=== PATIENT | male | born 1930 | race Caucasian/White ===

== ENCOUNTER 2016-11-02 16:55 | Inpatient (IN) | payer OTHER ==
--- NOTE | 2016-11-02 17:22 | EDPHY ---
H & P Time Seen by Provider: 11/02/16 17:21 HPI/ROS: Chief complaint. Generalized pain HPI. 86-year-old male here by EMS with pain and swelling to both wrists and hands ankles and feet that began this morning. He was out on the patio last evening and feeling fine but got chilled. He came in warmed up and then felt better. However this morning unable to walk and had pain and swelling to the wrists and ankles feet. Denies chest pain or shortness of breath. No fever cough. Difficult time urinating. No similar symptoms previously ROS Constitutional. no fever/chills, no weakness Eyes. no problems with vision ENT. no sore throat, no nasal drainage Cardiovascular. no chest pain Respiratory. no shortness of breath, no cough Abdominal. no abdominal pain, no nausea/vomiting, no diarrhea . no problems urinating MS. Pain swelling to wrists, hands, ankles, feet Skin. no rash Lymph. no swollen glands Neuro. Difficulty walking Past Medical/Surgical History: Past medical history from [place]-- insulin-dependent diabetic, hypothyroidism, arthritis, htn , CRI, aortic athersclerosis. sleep apnea, neuropathy allergies--per [place]-- AZAR inhibitors, nsaids, morphine, pcn Social History: , nonsmoker, no alcohol Smoking Status: Former smoker Physical Exam: General Appearance: Alert well-developed male mild distress vital signs significant for O2 saturation 85% on room air Eyes: Pupils equal and round no pallor or injection. ENT, Mouth: Mucous membranes are moist. Respiratory: There are no retractions, lungs are clear to auscultation. Cardiovascular: Regular rate and rhythm. Gastrointestinal: Abdomen is soft and nontender, no masses, bowel sounds normal. Neurological: Awake and alert, sensory and motor exams grossly normal. Skin: Warm and dry, no rashes. Musculoskeletal: Neck is supple nontender. Extremities there is swelling to both wrists and around his ankles. No obvious erythema. Both hands also appear to be swollen. Psychiatric: Patient is oriented X 3, there is no agitation. Constitutional: Initial Vital Signs Heart Rate 83 11/02/16 17:14 Respiratory Rate 16 11/02/16 17:14 Blood Pressure 135/73 H 11/02/16 17:14 O2 Sat (%) 85 L 11/02/16 17:14 O2 Delivery Mode Room Air O2 (L/minute) 4 Allergies/Adverse Reactions: AZAR Inhibitors Allergy (Verified 11/02/16 21:38) morphine Allergy (Verified 11/02/16 21:39) NSAIDS (Non-Steroidal Anti-Inflamma Allergy (Verified 11/02/16 21:38) Penicillins Allergy (Verified 07/05/15 13:42) Home Medications: Medication Instructions Recorded Aspirin [Aspirin 325 mg (*)] 325 mg PO DAILY 11/02/16 Cholecalciferol Vit D3 [Vitamin D3 2,000 units PO DAILY 11/02/16 (*)] Furosemide [Lasix 40 MG (*)] 80 mg PO DAILY 11/02/16 Gabapentin [Neurontin 300 MG (*)] 300 mg PO HS 11/02/16 Insulin NPH Human [humULIN N 100 17 units SC DAILY 11/02/16 UNITS/ML (*)] Insulin NPH Human [humULIN N 100 27 units SC HS 11/02/16 UNITS/ML (*)] Levothyroxine [Synthroid 200 mcg 200 mcg PO DAILY06 11/02/16 (*)] Multivitamins [Multivitamin (*)] 1 each PO DAILY 11/02/16 [place]-3 Fatty Acids [Fish Oil 1000 1,000 mg PO DAILY 11/02/16 mg (*)] Omeprazole 20 mg PO DAILY 11/02/16 Saxagliptin HCl [Onglyza] 2.5 mg PO DAILY 11/02/16 Spironolactone [Aldactone 25 MG 50 mg PO BID 11/02/16 (*)] glipiZIDE [Glucotrol] 5 mg PO BID 11/02/16 Medical Decision Making - Diagnostics EKG Interpretation: EKG interpreted by me shows normal sinus rhythm with first-degree AV block. There is left axis deviation. QRS is otherwise normal there is no significant ST elevation or depression. The rate is 71 Imaging Results: Chest x-ray interpreted by me shows no evidence for pneumonia Procedures: IV normal saline, monitor. Septic workup. ED Course/Re-evaluation: Re-evaluation 7:00 p.m. patient is stable The patient, his , and I discussed imaging lab EKG results. We discussed treatment plan including need for admission. They expressed understanding and agreement I called [place] to obtain further medical information I consulted and discussed the case with , hospitalist who agrees to the admission Differential Diagnosis: Slow bit unclear what is going on with this patient. He has a elevated white count. He has sudden onset of swelling to wrist hands ankles and feet. This could be gout or pseudogout generalized inflammation. No obvious source of infection - Data Points Medications Given: Discontinued Medications Sodium Chloride (Ns) 1,000 mls @ 0 mls/hr IV ONCE ONE PRN Reason: Wide Open Stop: 11/02/16 19:08 Last Admin: 11/02/16 19:44 Dose: 1,000 mls Sodium Chloride (Ns) 1,000 mls @ 100 mls/hr IV CONT LUIS Stop: 11/03/16 07:44 Last Admin: 11/02/16 20:30 Dose: 1,000 mls Departure - Departure Disposition: [facility] Inpatient Acute Condition: Good
[2016-11-02 17:42] LABS: % IMMATURE GRANULYOCYTES 0.7 % (0.0-1.1); ABSOLUTE IMMATURE GRANULOCYTES 0.15 10^3/uL (0.00-0.10); ADD DIFF? NO; ADD MORPH? NO; ADD SCAN? NO; ATYPICAL LYMPHOCYTE FLAG 0 (0-99); FRAGMENT RBC FLAG 0 (0-99); HEMATOCRIT 48.7 % (40.0-51.0); HEMOGLOBIN 16.8 g/dL (13.7-17.5); LEFT SHIFT FLG 10 (0-99); LIPEMIA HEMOLYSIS FLAG 90 (0-99); MEAN CELL HEMOGLOBIN 31.9 pg (27.9-34.1); MEAN CELL HEMOGLOBIN CONCENTR. 34.5 g/dL (32.4-36.7); MEAN CELL VOLUME 92.6 fL (81.5-99.8); MEAN PLATELET VOLUME 10.8 fL (8.7-11.7); PLATELET CLUMPS FLAG 0 (0-99); PLATELET COUNT 210 10^3/uL (150-400); RED BLOOD CELL COUNT 5.26 10^6/uL (4.40-6.38); RED CELL DISTRIBUTION WIDTH 13.4 % (11.5-15.2)
[2016-11-02 17:45] LABS: INR 1.11 (0.83-1.16); PROTIME(PATIENT) 14.2 SEC (12.0-15.0)
[2016-11-02 17:46] LABS: APTT 29.6 SEC (23.0-38.0)
[2016-11-02 17:48] LABS: ANION GAP 11 mEq/L (8-16); BILIRUBIN,TOTAL 3.7 mg/dL (0.1-1.4); CALCIUM 9.1 mg/dL (8.5-10.4); CARBON DIOXIDE 25 mEq/l (22-31); CHLORIDE 98 mEq/L (97-110); CREATININE 1.5 mg/dL (0.7-1.3); GLOMERULAR FILTRATION RATE 44; GLUCOSE 229 mg/dL (70-100); POTASSIUM 4.6 mEq/L (3.5-5.2); SODIUM 134 mEq/L (134-144)
--- NOTE | 2016-11-02 17:52 | CPEKG ---
Heart Rate: 71 RR Interval: 845 P-R Interval: 304 QRSD Interval: 94 QT Interval: 388 QTC Interval: 422 P Bumpass: 262 QRS Bumpass: -6 T Wave Bumpass: 19 EKG Severity - ABNORMAL ECG - EKG Impression: SINUS OR ECTOPIC ATRIAL RHYTHM EKG Impression: FIRST DEGREE AV BLOCK EKG Impression: PROBABLE INFERIOR INFARCT, AGE INDETERMINATE EKG Impression: CONSIDER POSTERIOR WALL INVOLVEMENT Electronically Signed By: Blane Collado 02-Nov-2016 21:28:45
[2016-11-02 17:57] LABS: SEDIMENTATION RATE 10 MM/HR (0-20)
[2016-11-02 18:00] LABS: BILIRUBIN-CONJUGATED 0.7 mg/dL (0.0-0.5); TROPONIN I < 0.012 ng/mL (0-0.034)
[2016-11-02] MEDS ORDERED: NS 1,000 ML IV ONE (19:07)
[2016-11-02 20:14] LABS: ALBUMIN 3.9 g/dL (3.5-5.0); BILIRUBIN,TOTAL 3.7 mg/dL (0.1-1.4); BILIRUBIN-CONJUGATED 0.7 mg/dL (0.0-0.5); TOTAL PROTEIN 6.7 g/dL (6.3-8.2)
[2016-11-02] MEDS ORDERED: D50W 25 GM/50 ML SYR IVP PRN (21:31)
[2016-11-02] MEDS ORDERED: BISACODYL 10 MG SUPP PR PRN (21:38)
[2016-11-02] MEDS ORDERED: MAGNESIUM HYDROXIDE 30 ML UDCUP PO PRN (21:38)
[2016-11-02] MEDS ORDERED: POLYETHYLENE GLYCOL 3350 17 GM PKT PO PRN (21:38)
[2016-11-02] MEDS ORDERED: LACTULOSE 20 GM/30 ML UDCUP PO PRN (21:38)
[2016-11-02] MEDS ORDERED: ACETAMINOPHEN 325 MG TAB PO PRN (21:39)
[2016-11-02] MEDS ORDERED: HYDROmorphONE/DILAUDID 1 MG/ML SYR IVP PRN (21:39)
[2016-11-02] MEDS ORDERED: ONDANSETRON 4 MG/2 ML VIAL IVP PRN (21:39)
[2016-11-02] MEDS ORDERED: NS 1,000 ML IV SCH (21:45)
--- NOTE | 2016-11-02 22:48 | GHP ---
[f rep st] HISTORY AND PHYSICAL DATE OF ADMISSION: 11/02/2016 CHIEF COMPLAINT: Diffuse joint pain. HISTORY: The patient is an 86-year-old male, who presents with diffuse joint pain starting this morning. It is so severe he is unable to walk. He had a libertarian at his home last night and they stayed up later than usual on the patio. When he came in, he got severe chills and he could not get warm. He went to bed. When he woke up this morning he felt like a sack of potatoes, was unable to walk. He developed new diffuse joint pain and swelling. He has some chronic right wrist pain due to a previous fracture with subsequent deformity. Starting this morning, he developed bilateral wrist, feet, ankle and knee pain. He only drank 2 beers last night. He denies any morning stiffness. There has been no fever. He complains of constipation, not diarrhea. PAST MEDICAL HISTORY: 1. Diabetes type 2. 2. Hypothyroidism. 3. Obstructive sleep apnea on CPAP. 4. Neuropathy. MEDICATIONS: Please see computer record for full detailed list. ALLERGIES: To penicillin, AZAR inhibitors, NSAIDs and morphine. SOCIAL HISTORY: No smoking. He will drink up to 2 beers socially. Lives with his . His has advanced dementia. 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 He is 50 % disabled through the [facility] and also followed at [place]. REVIEW OF SYSTEMS: Complete Review of Systems obtained. Review of Systems are negative regarding constitutional, HEENT, GI, pulmonary, cardiovascular, , hematology, skin, musculoskeletal, endocrine, psych, except for positives and negatives as in HPI. FAMILY HISTORY: Reviewed and noncontributory to the presenting complaint. PHYSICAL EXAMINATION: GENERAL: Well-developed, well-nourished male, in no acute distress. VITAL SIGNS: Temperature is 36.9, pulse of 70, blood pressure 108/52, saturating 85% on room air. EYES: Normal conjunctivae. Pupils equal and react to light. ENT: Normal ears and nose. Hearing intact. Normal lips and teeth. Oropharynx moist. NECK: Trachea midline. No thyromegaly. CHEST: Normal respiratory effort. LUNGS: Clear to auscultation bilaterally. CARDIOVASCULAR: Regular rhythm. No murmur. No lower extremity edema. ABDOMEN : Soft, nontender. No hepatosplenomegaly. Obese. SKIN: Warm, dry. Intact without rash. MUSCULOSKELETAL: Strength is 5/5 bilaterally. No cyanosis or clubbing. His joints do have some diffuse inflammation, most prominent in the bilateral wrists with the right wrist being much worse. Although, it is unclear to what degree that is from the previous deformity. There is a clear palpable fluid collection on the right wrist. The left wrist does have some erythema and pain with range of motion but without as much fluid collection. He has pain with range of motion in the bilateral knees and ankles, although less obvious inflammation. He probably has some knee effusions. NEUROLOGIC: Cranial nerves intact. Normal sensation to light touch. PSYCH: Alert and oriented x3. Normal affect. Normal judgment and insight. Normal memory. LABORATORY DATA: White count 20.32, hematocrit 48.7, platelets 210. Sodium 134 , potassium 4.6, chloride 98, bicarb 25, BUN 32, creatinine 1.5, glucose 229. Total bilirubin 3.7, although this is mostly unconjugated. Troponin is negative. BNP is 102. Lactate is 1.6. EKG viewed by me: My personal interpretation is normal sinus rhythm, inferior T-wave flattening. Chest x-ray is essentially negative, possible bronchitis. ASSESSMENT/PLAN: 1. 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 The inflammation is most prominent on his right wrist, although this is a site of a previous fracture and deformity which may be leading to some of that asymmetry. Differential is broad, including self-limited viral infection. I will check parvo virus. His LFTs are abnormal. We will check an acute hepatitis panel and HIV. Could also consider EBV and CMV serology, although this is less likely. Also in differential is gout or calcium pyrophosphate dihydrate crystal deposition disease, although that would be anticipated to be more asymmetric. Will check uric acid and an x-ray starting with the right wrist. We will ask Radiology to tap the obvious palpable fluid on his right wrist and send it for crystals. I doubt septic joint. Rheumatologic disease is less likely given his advanced age, his sedimentation rate is not that high at 10. We will check a rheumatoid arthritis and an ALLEGRA. Given his leukocytosis, need to consider serum sickness and will check blood cultures. He does have a listed NSAID allergy. He would likely benefit from oral steroids; however, will hold off until a diagnosis is established. 3. Creatinine elevation. This may be his baseline. We will hydrate for 1 L and then recheck in the morning. 5. Obstructive sleep apnea and obesity. Continue CPAP at night. 6. Diabetes type 2. Continue his usual insulin and oral agents. CODE STATUS: Full. ADMISSION STATUS: 1. Will admit to inpatient. I anticipate greater than 2 midnights for diagnosis and treatment. 2. Deep vein thrombosis prophylaxis. He is high risk. Will place him on subcu Lovenox. /[id number]/MODL MTDD
[2016-11-02] MEDS: INSULIN NPH HUMAN 100 UNITS/ML SYRINGE SC SCH (23:09)
[2016-11-02] MEDS: oxyCODONE IR 5 MG TAB PO PRN (23:09)
[2016-11-02] MEDS: INSULIN REGULAR HUMAN 100 UNIT/ML SC SCH (23:19)
[2016-11-02 23:26] LABS: COLOR YELLOW; LEUKOCYTE ESTERASE,URINE NEGATIVE (NEGATIVE); NITRITE,URINE NEGATIVE (NEGATIVE)
[2016-11-03 05:05] LABS: % IMMATURE GRANULYOCYTES 0.5 % (0.0-1.1); ABSOLUTE IMMATURE GRANULOCYTES 0.07 10^3/uL (0.00-0.10); ADD DIFF? NO; ADD MORPH? NO; ADD SCAN? NO; ATYPICAL LYMPHOCYTE FLAG 0 (0-99); FRAGMENT RBC FLAG 0 (0-99); HEMATOCRIT 43.2 % (40.0-51.0); HEMOGLOBIN 14.8 g/dL (13.7-17.5); LEFT SHIFT FLG 10 (0-99); LIPEMIA HEMOLYSIS FLAG 90 (0-99); MEAN CELL HEMOGLOBIN CONCENTR. 34.3 g/dL (32.4-36.7); MEAN CELL VOLUME 93.5 fL (81.5-99.8); MEAN PLATELET VOLUME 10.3 fL (8.7-11.7); PLATELET CLUMPS FLAG 0 (0-99); PLATELET COUNT 180 10^3/uL (150-400); RED BLOOD CELL COUNT 4.62 10^6/uL (4.40-6.38); RED CELL DISTRIBUTION WIDTH 13.4 % (11.5-15.2)
[2016-11-03 05:18] LABS: POTASSIUM 4.4 mEq/L (3.5-5.2)
[2016-11-03 05:21] LABS: ALANINE AMINOTRANSFERASE 40 IU/L (21-72); ALBUMIN 3.1 g/dL (3.5-5.0); ALKALINE PHOSPHATASE 80 IU/L (38-126); ANION GAP 7 mEq/L (8-16); ASPARTATE AMINOTRANSFERASE 56 IU/L (17-59); BILIRUBIN-CONJUGATED 0.4 mg/dL (0.0-0.5); BILIRUBIN-UNCONJUGATED 2.6 mg/dL (0.0-1.1); CALCIUM 8.4 mg/dL (8.5-10.4); CARBON DIOXIDE 25 mEq/l (22-31); CHLORIDE 102 mEq/L (97-110); CREATININE 1.4 mg/dL (0.7-1.3); GLOMERULAR FILTRATION RATE 48; GLUCOSE 188 mg/dL (70-100); SODIUM 134 mEq/L (134-144); TOTAL PROTEIN 5.7 g/dL (6.3-8.2); URIC ACID 7.3 mg/dL (3.5-8.5)
[2016-11-03] MEDS: LEVOTHYROXINE 200 MCG TAB PO SCH (06:56)
[2016-11-03] MEDS ORDERED: INSULIN REGULAR HUMAN 100 UNIT/ML SC SCH (07:30)
[2016-11-03] MEDS: oxyCODONE IR 5 MG TAB PO PRN ×2 (08:36→14:03)
[2016-11-03] MEDS: ASPIRIN 325 MG TAB PO SCH (10:06)
[2016-11-03] MEDS: FUROSEMIDE 40 MG TAB PO SCH (10:06)
[2016-11-03] MEDS: PANTOPRAZOLE SODIUM 40 MG TAB PO SCH (10:06)
[2016-11-03] MEDS: glipiZIDE 5 MG TAB PO SCH ×2 (10:06→20:48)
[2016-11-03] MEDS: SPIRONOLACTONE 25 MG TAB PO SCH ×2 (10:13→20:48)
[2016-11-03] MEDS: SENNOSIDES/DOCUSATE SODIUM TAB PO SCH ×2 (10:17→20:47)
[2016-11-03] MEDS: Saxagliptin Hcl [Onglyza] 2.5 MG PO SCH (10:20)
[2016-11-03] MEDS: INSULIN REGULAR HUMAN 100 UNIT/ML SC SCH ×4 (10:23→20:50)
[2016-11-03] MEDS: INSULIN NPH HUMAN 100 UNITS/ML SYRINGE SC SCH ×2 (10:23→20:43)
[2016-11-03] MEDS ORDERED: LIDOCAINE 1% 30 ML SDV ONE (10:36)
[2016-11-03] MEDS ORDERED: NA BICARBONATE 50 MEQ/50 ML VIAL ONE (10:37)
[2016-11-03 14:04] LABS: WBC, SYNOVIAL FLUID 32325 /mm3 (0-150)
--- NOTE | 2016-11-03 14:46 | HOSPPROG ---
Hospitalist Progress Note Assessment/Plan: * acute onset of polyarticular arthritis * suspecting post infectious or viral * seems to be significantly better today * will hold off of any therapy and see if this is self-resolving * will await crystals from joint aspiration * he has had chronic wrist fluid collection there for some time and thus the aspiration of the right wrist may not lead to answers for the rest of his joints. 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 Lemus - Physical Exam Constitutional: no apparent distress, appears nourished, not in pain Eyes: anicteric sclera, EOMI Ears, Nose, Mouth, Throat: moist mucous membranes, hearing normal, ears appear normal Cardiovascular: regular rate and rhythym Respiratory: no respiratory distress, no rales or rhonchi, clear to auscultation Gastrointestinal: normoactive bowel sounds, soft, non-tender abdomen, no palpable masses Skin: warm Musculoskeletal: other ( right wrist fluid collection, bilateral mild knee effusion) Neurologic: AAOx3 Psychiatric: interacting appropriately, not anxious, not encephalopathic, thought process linear ICD10 Worksheet Patient Problems: Problems Problem Status Onset Arthritis Acute - ICD10 Problem Qualifiers (1) Arthritis
[2016-11-03] MEDS ORDERED: PROMETHAZINE HCL 25 MG TAB PO PRN (19:49)
[2016-11-03] MEDS ORDERED: PROMETHAZINE HCL 12.5 MG SUPPR PR PRN (19:49)
[2016-11-03] MEDS: GABAPENTIN 300 MG CAP PO SCH (20:48)
[2016-11-03] MEDS ORDERED: INSULIN NPH HUMAN 100 UNITS/ML SYRINGE SC SCH (21:00)
[2016-11-04] MEDS: LEVOTHYROXINE 200 MCG TAB PO SCH (05:16)
[2016-11-04 05:35] LABS: % IMMATURE GRANULYOCYTES 0.5 % (0.0-1.1); ABSOLUTE IMMATURE GRANULOCYTES 0.04 10^3/uL (0.00-0.10); ADD DIFF? NO; ADD MORPH? NO; ADD SCAN? NO; ATYPICAL LYMPHOCYTE FLAG 0 (0-99); FRAGMENT RBC FLAG 0 (0-99); HEMATOCRIT 44.6 % (40.0-51.0); HEMOGLOBIN 15.4 g/dL (13.7-17.5); LEFT SHIFT FLG 0 (0-99); LIPEMIA HEMOLYSIS FLAG 90 (0-99); MEAN CELL HEMOGLOBIN CONCENTR. 34.5 g/dL (32.4-36.7); MEAN CELL VOLUME 92.5 fL (81.5-99.8); MEAN PLATELET VOLUME 10.2 fL (8.7-11.7); PLATELET CLUMPS FLAG 0 (0-99); PLATELET COUNT 192 10^3/uL (150-400); RED BLOOD CELL COUNT 4.82 10^6/uL (4.40-6.38); RED CELL DISTRIBUTION WIDTH 13.2 % (11.5-15.2)
[2016-11-04 06:00] LABS: ANION GAP 8 mEq/L (8-16); CALCIUM 8.7 mg/dL (8.5-10.4); CARBON DIOXIDE 24 mEq/l (22-31); CHLORIDE 103 mEq/L (97-110); CREATININE 1.4 mg/dL (0.7-1.3); GLOMERULAR FILTRATION RATE 48; GLUCOSE 79 mg/dL (70-100); POTASSIUM 4.4 mEq/L (3.5-5.2); SODIUM 135 mEq/L (134-144)
[2016-11-04] MEDS: oxyCODONE IR 5 MG TAB PO PRN ×3 (10:10→21:46)
[2016-11-04] MEDS: INSULIN REGULAR HUMAN 100 UNIT/ML SC SCH ×4 (10:11→21:49)
[2016-11-04] MEDS: glipiZIDE 5 MG TAB PO SCH ×2 (10:13→21:46)
[2016-11-04] MEDS: ASPIRIN 325 MG TAB PO SCH (10:13)
[2016-11-04] MEDS: PANTOPRAZOLE SODIUM 40 MG TAB PO SCH (10:14)
[2016-11-04] MEDS: FUROSEMIDE 40 MG TAB PO SCH (10:14)
[2016-11-04] MEDS: SPIRONOLACTONE 25 MG TAB PO SCH ×2 (10:14→21:46)
[2016-11-04] MEDS: SENNOSIDES/DOCUSATE SODIUM TAB PO SCH ×2 (10:15→21:46)
[2016-11-04] MEDS: ENOXAPARIN 40 MG/0.4 ML SYR SC SCH (10:16)
[2016-11-04] MEDS: INSULIN NPH HUMAN 100 UNITS/ML SYRINGE SC SCH ×2 (10:20→21:45)
--- NOTE | 2016-11-04 10:27 | HOSPPROG ---
Hospitalist Progress Note Assessment/Plan: # acute symmetric polyarthritis, likely pseudogout - will treat with colchicine and follow clinical course # markedly elevated CRP and leukocytosis - likely related to above, follow for now # weakness - was too eak to work with PT yesterday; treat above and follow # CKD - follow, no nephrotoxins # DM2 - cont glargine + SSI # hypothyroid, low TSH - cont synthroid, check T3T4 # JEFFRY - cpap Subjective: ongoing joint pain and weakness Objective: Vital Signs Temp Pulse Resp BP Pulse Ox 36.6 C 77 18 110/71 94 11/04/16 07:53 11/04/16 07:53 11/04/16 07:53 11/04/16 07:53 11/04/16 07:53 Laboratory Results 11/04/16 05:23 11/04/16 05:23 11/03/16 11/04/16 11/05/16 05:59 05:59 05:59 Intake Total 500 300 Output Total 1100 Balance 500 -800 PT 14.2 SEC (12.0-15.0) 11/02/16 Unknown INR 1.11 (0.83-1.16) 11/02/16 Unknown chart reviewed; wrist XR reviewed; ECG personally reviewed - Physical Exam Constitutional: no apparent distress, appears nourished Cardiovascular: regular rate and rhythym, no murmur, rub, or gallop Respiratory: no respiratory distress, no rales or rhonchi, clear to auscultation Gastrointestinal: normoactive bowel sounds, soft, non-tender abdomen, no palpable masses Musculoskeletal: other (multiple joints that are warm, mild effusions, no erythema) ICD10 Worksheet Patient Problems: Problems Problem Status Onset Arthritis Acute
[2016-11-04] MEDS: COLCHICINE 0.6 MG CAP/TAB PO SCH ×2 (12:23→21:47)
[2016-11-04 15:22] LABS: ANTINUCLEAR ANTIBODIES SCREEN 0.62 UNITS (<=1.00)
[2016-11-04] MEDS: Saxagliptin Hcl [Onglyza] 2.5 MG PO SCH ×2 (17:18→17:19)
[2016-11-04] MEDS: GABAPENTIN 300 MG CAP PO SCH (21:47)
[2016-11-05] MEDS: oxyCODONE IR 5 MG TAB PO PRN (02:08)
[2016-11-05 06:14] VITALS: RESP 18
[2016-11-05] MEDS: LEVOTHYROXINE 200 MCG TAB PO SCH (06:17)
[2016-11-05 07:48] LABS: % IMMATURE GRANULYOCYTES 0.4 % (0.0-1.1); ABSOLUTE IMMATURE GRANULOCYTES 0.03 10^3/uL (0.00-0.10); ADD DIFF? NO; ADD MORPH? NO; ADD SCAN? NO; ATYPICAL LYMPHOCYTE FLAG 0 (0-99); FRAGMENT RBC FLAG 0 (0-99); HEMATOCRIT 43.6 % (40.0-51.0); HEMOGLOBIN 14.7 g/dL (13.7-17.5); LEFT SHIFT FLG 0 (0-99); LIPEMIA HEMOLYSIS FLAG 80 (0-99); MEAN CELL HEMOGLOBIN 31.7 pg (27.9-34.1); MEAN CELL HEMOGLOBIN CONCENTR. 33.7 g/dL (32.4-36.7); MEAN PLATELET VOLUME 10.4 fL (8.7-11.7); PLATELET CLUMPS FLAG 10 (0-99); PLATELET COUNT 217 10^3/uL (150-400); RED BLOOD CELL COUNT 4.64 10^6/uL (4.40-6.38); RED CELL DISTRIBUTION WIDTH 13.2 % (11.5-15.2)
[2016-11-05 08:15] LABS: ANION GAP 6 mEq/L (8-16); C-REACTIVE PROTEIN 87.2 mg/L (<10.0); CALCIUM 8.6 mg/dL (8.5-10.4); CARBON DIOXIDE 26 mEq/l (22-31); CHLORIDE 102 mEq/L (97-110); CREATININE 1.3 mg/dL (0.7-1.3); GLOMERULAR FILTRATION RATE 52; GLUCOSE 62 mg/dL (70-100); POTASSIUM 4.5 mEq/L (3.5-5.2); SODIUM 134 mEq/L (134-144)
[2016-11-05 08:41] LABS: T3 (TRIIODOTHYRONINE) TOTAL 0.767 ng/mL (0.970-1.690)
[2016-11-05] MEDS: INSULIN REGULAR HUMAN 100 UNIT/ML SC SCH ×4 (09:18→21:42)
[2016-11-05] MEDS: SENNOSIDES/DOCUSATE SODIUM TAB PO SCH ×2 (10:04→21:22)
[2016-11-05] MEDS: COLCHICINE 0.6 MG CAP/TAB PO SCH ×2 (10:04→21:22)
[2016-11-05] MEDS: ASPIRIN 325 MG TAB PO SCH (10:04)
[2016-11-05] MEDS: PANTOPRAZOLE SODIUM 40 MG TAB PO SCH (10:04)
[2016-11-05] MEDS: glipiZIDE 5 MG TAB PO SCH ×2 (10:04→21:22)
[2016-11-05] MEDS: FUROSEMIDE 40 MG TAB PO SCH (10:05)
[2016-11-05] MEDS: ENOXAPARIN 40 MG/0.4 ML SYR SC SCH (10:05)
[2016-11-05] MEDS: INSULIN NPH HUMAN 100 UNITS/ML SYRINGE SC SCH (10:05)
[2016-11-05] MEDS: SPIRONOLACTONE 25 MG TAB PO SCH ×2 (10:06→21:21)
[2016-11-05] MEDS: Saxagliptin Hcl [Onglyza] 2.5 MG PO SCH (10:09)
[2016-11-05] MEDS ORDERED: INSULIN NPH HUMAN 100 UNITS/ML SYRINGE SC SCH (10:46)
--- NOTE | 2016-11-05 10:48 | HOSPPROG ---
Hospitalist Progress Note Assessment/Plan: # pseudogout - improved with colchicine # markedly elevated CRP and leukocytosis - likely related to above, follow for now # weakness - slowly improving # CKD - follow, no nephrotoxins # DM2 with morning hypoglycemia - cont glargine + SSI - decrease nocturnal NPH # hypothyroid, low TSH - slightly low T3 - recheck as outpatient in 1 month # JEFFRY - cpap Subjective: overall improving, more mobility in joints; still unsteady on feet Objective: Vital Signs Temp Pulse Resp BP Pulse Ox 36.8 C 68 18 120/53 L 92 11/05/16 07:47 11/05/16 07:47 11/05/16 07:47 11/05/16 07:47 11/05/16 07:47 Laboratory Results 11/05/16 07:26 11/05/16 07:26 11/04/16 11/05/16 11/06/16 05:59 05:59 05:59 Intake Total 300 850 Output Total 1100 1150 Balance -800 -300 PT 14.2 SEC (12.0-15.0) 11/02/16 Unknown INR 1.11 (0.83-1.16) 11/02/16 Unknown - Time Spent With Patient Time Spent with Patient: greater than 25 minutes Time Spent with Patient: Greater than 25 minutes spent on this patients care, greater than 50% of time spent counseling, educating, and coordinating care regarding the above mentioned plan. - Physical Exam Constitutional: no apparent distress, appears nourished Cardiovascular: regular rate and rhythym, no murmur, rub, or gallop Respiratory: no respiratory distress, no rales or rhonchi, clear to auscultation Gastrointestinal: normoactive bowel sounds, soft, non-tender abdomen, no palpable masses ICD10 Worksheet Patient Problems: Problems Problem Status Onset Arthritis Acute
[2016-11-05] MEDS: GABAPENTIN 300 MG CAP PO SCH (21:21)
[2016-11-06] MEDS: LEVOTHYROXINE 200 MCG TAB PO SCH (06:10)
[2016-11-06] MEDS: INSULIN REGULAR HUMAN 100 UNIT/ML SC SCH ×2 (07:41→12:28)
[2016-11-06 08:21] VITALS: BP 150/96; PULSE 78; TEMP 97.2; O2SAT 95
[2016-11-06] MEDS: FUROSEMIDE 40 MG TAB PO SCH (09:36)
[2016-11-06] MEDS: glipiZIDE 5 MG TAB PO SCH (09:36)
[2016-11-06] MEDS: PANTOPRAZOLE SODIUM 40 MG TAB PO SCH (09:36)
[2016-11-06] MEDS: SPIRONOLACTONE 25 MG TAB PO SCH (09:36)
[2016-11-06] MEDS: ASPIRIN 325 MG TAB PO SCH (09:36)
[2016-11-06] MEDS: SENNOSIDES/DOCUSATE SODIUM TAB PO SCH (09:36)
[2016-11-06] MEDS: COLCHICINE 0.6 MG CAP/TAB PO SCH (09:36)
[2016-11-06] MEDS: ENOXAPARIN 40 MG/0.4 ML SYR SC SCH (09:37)
[2016-11-06] MEDS: Saxagliptin Hcl [Onglyza] 2.5 MG PO SCH (10:37)
--- NOTE | 2016-11-06 10:40 | PDIAF ---
- Diagnosis Diagnosis: Pseudogout Code Status: Full Code - Medication Management Discharge Medications: Medications to Continue on Transfer Aspirin [Aspirin 325 mg (*)] 325 mg PO DAILY 11/02/16 [Last Taken 11/01/16] Cholecalciferol Vit D3 [Vitamin D3 (*)] 2,000 units PO DAILY 11/02/16 [Last Taken 11/01/16] Furosemide [Lasix 40 MG (*)] 80 mg PO DAILY 11/02/16 [Last Taken 11/01/16] Gabapentin [Neurontin 300 MG (*)] 300 mg PO HS 11/02/16 [Last Taken 11/01/16] Insulin NPH Human [humULIN N 100 UNITS/ML (*)] 17 units SC DAILY 11/02/16 [Last Taken 11/01/16] Levothyroxine [Synthroid 200 mcg (*)] 200 mcg PO DAILY06 11/02/16 [Last Taken ] Multivitamins [Multivitamin (*)] 1 each PO DAILY 11/02/16 [Last Taken 11/01/16] [place]-3 Fatty Acids [Fish Oil 1000 mg (*)] 1,000 mg PO DAILY 11/02/16 [Last Taken 11/01/16] Omeprazole 20 mg PO DAILY 11/02/16 [Last Taken 11/01/16] Saxagliptin HCl [Onglyza] 2.5 mg PO DAILY 11/02/16 [Last Taken 11/01/16] Spironolactone [Aldactone 25 MG (*)] 50 mg PO BID 11/02/16 [Last Taken 11/01/16] glipiZIDE [Glucotrol 5 mg] 5 mg PO BID 11/02/16 [Last Taken 11/01/16] Colchicine [Colchicine (*)] 0.6 mg PO BID #60 ea 11/06/16 [Last Taken Unknown] Insulin NPH Human [humULIN N 100 UNITS/ML (*)] 15 units SC HS ml 11/06/16 [ Last Taken Unknown] Discharge Medications: Refer to the Discharge Home Medication list for PRN reason. - Orders Services needed: Registered Nurse, Certified Development Geologist, Physical Therapy, Occupational Therapy - Labs/Radiology BMP Date: 11/08/16 - Follow Up Care Current Providers and Referrals: Patient,NotPresent [Unknown] - As per Instructions
[2016-11-06] MEDS: INSULIN NPH HUMAN 100 UNITS/ML SYRINGE SC SCH (10:41)
--- NOTE | 2016-11-06 11:02 | GDS ---
[f rep st] DISCHARGE SUMMARY ALL DIAGNOSES: 1. Pseudogout. 2. Elevated inflammatory markers. 3. Hypothyroid. 4. Weakness. 5. Chronic kidney disease, at baseline creatinine of 1.3. 6. Diabetes mellitus type 2 with an episode of morning hypoglycemia. 7. Obstructive sleep apnea on CPAP. HOSPITAL COURSE: 86-year-old man admitted with symmetric polyarthritis. Aspiration revealed calciu m pyrophosphate crystals consistent with pseudogout. Started on colchicine with significant improve ment, though he is still quite weak when he ambulates. Recommend that he continue on colchicine for the time being. Notably he had a significant leukocytosis as well as elevated CRP, both of which h ave improved markedly without other directed therapy. No evidence of an infection. Chronic kidney disease has been stable. Discharge creatinine is 1.3. This should be followed while he is on colchicine. He has diabetes mellitus type 2. He had an episode of morning hypoglycemia. I have decreased his e vening NPH accordingly. He will be discharged on 17 units in the morning, 15 units in the evening. He is also on saxagliptin. DISPOSITION: Will likely be discharged to long-term facility. He had an episode of an outbur st with the nurse. Thus if he is not accepted by a long-term facility, he will be discharged home with home care. BILLING: I spent more than 30 minutes on the day of discharge coordinating care. /[id number]/MODL
[2016-11-06 15:17] LABS: PARVOVIRUS B19 IGG ANTIBODY 6.58 index (<0.90); PARVOVIRUS B19 IGM ANTIBODY 0.17 index (<0.90)
== END 2016-11-06 17:07 | DRG 554 ==
LOC: EDUNIT# → F1N 20:27
PROVIDERS: ADMIT Internal Medicine; ATTEND Student in an Organized Health Care Education/Training Program
PROC: 0R9N3ZX Drainage of Right Wrist Joint, Percutaneous Approach, Diagnostic (ICD-10-PCS; principal; 2016-11-03)
DX: M11.29 Other chondrocalcinosis, multiple sites (principal); E03.9 Hypothyroidism, unspecified; E11.649 Type 2 diabetes mellitus with hypoglycemia without coma; Z79.4 Long term (current) use of insulin; I10 Essential (primary) hypertension; N18.9 Chronic kidney disease, unspecified; G62.9 Polyneuropathy, unspecified; G47.33 Obstructive sleep apnea (adult) (pediatric); E66.9 Obesity, unspecified
CPT/HCPCS: 84480-90; 86747-90; 97162-GP; 97165-GO; 97530-GO; 97530-GP; 97535-GO; G0472; J1650; J1815; J2405

== ENCOUNTER 2017-04-19 14:14 | Inpatient (IN) | payer OTHER ==
--- NOTE | 2017-04-19 14:24 | EDPHY ---
H & P Time Seen by Provider: 04/19/17 14:20 HPI/ROS: CHIEF COMPLAINT: Altered mental status HISTORY OF PRESENT ILLNESS: The patient is an 86-year-old male who presents to the emergency department via EMS. Per nursing staff he was normal at lunch. The staff the then came to his room at approximately 1:40 p.m. when they heard him yelling and screaming. This was not typical per the nurse. EMS states the patient was hemodynamically stable. They did not note any focal neurologic deficits. Patient's glucose was 96. The patient is speaking in normal sentences. However, he does not clearly answer all all my questions. REVIEW OF SYSTEMS: The patient's complete review of systems is limited due the patient's altered mental status. Past Medical/Surgical History: Includes diabetes, pseudogout, hypothyroidism, weakness, chronic kidney disease with creatinine 1.3, obstructive sleep apnea Past surgical history: Unknown Smoking Status: Former smoker Physical Exam: Vitals noted. Patient has a mildly low oxygen saturation. Afebrile. GENERAL: No acute distress, alert]. Smells of urine. HEENT: Eyes normal to inspection, normal pharynx, no signs of dehydration. NECK: No thyromegaly, no lymphadenopathy, supple. RESPIRATORY: Clear to auscultation bilaterally, no rales, rhonchi or wheezing. CVS: Regular rate and rhythm, no rubs, murmurs, or gallops. ABDOMEN: Soft, nontender, nondistended, no organomegaly. BACK: Normal to inspection, no CVA tenderness. SKIN: Normal color, no rash, warm, dry. No pallor. EXTREMITIES: No pedal edema, no calf tenderness, no Homans sign or cords, no joint swelling. NEURO/PSYCH: Alert and oriented x2, normal motor sensory exam. Patient makes inappropriate statements. No obvious cranial nerve deficit. Constitutional: Initial Vital Signs Temperature (C) 36.7 C 04/19/17 14:28 Heart Rate 84 04/19/17 14:28 Respiratory Rate 18 04/19/17 14:28 Blood Pressure 165/80 H 04/19/17 14:28 O2 Sat (%) 91 L 04/19/17 14:28 O2 Delivery Mode Nasal Cannula O2 (L/minute) 3 Allergies/Adverse Reactions: AZAR Inhibitors Allergy (Verified 11/02/16 21:38) morphine Allergy (Verified 11/02/16 21:39) NSAIDS (Non-Steroidal Anti-Inflamma Allergy (Verified 11/02/16 21:38) Penicillins Allergy (Verified 07/05/15 13:42) Home Medications: Medication Instructions Recorded Aspirin [Aspirin 325 mg (*)] 325 mg PO DAILY 11/02/16 Cholecalciferol Vit D3 [Vitamin D3 2,000 units PO DAILY 11/02/16 (*)] Furosemide [Lasix 40 MG (*)] 80 mg PO DAILY 11/02/16 Gabapentin [Neurontin 300 MG (*)] 300 mg PO HS 11/02/16 Insulin NPH Human [humULIN N 100 17 units SC DAILY 11/02/16 UNITS/ML (*)] Levothyroxine [Synthroid 200 mcg 200 mcg PO DAILY06 11/02/16 (*)] Multivitamins [Multivitamin (*)] 1 each PO DAILY 11/02/16 [place]-3 Fatty Acids [Fish Oil 1000 1,000 mg PO DAILY 11/02/16 mg (*)] Omeprazole 20 mg PO DAILY 11/02/16 Saxagliptin HCl [Onglyza] 2.5 mg PO DAILY 11/02/16 Spironolactone [Aldactone 25 MG 50 mg PO BID 11/02/16 (*)] glipiZIDE [Glucotrol 5 mg] 5 mg PO BID 11/02/16 Colchicine [Colchicine (*)] 0.6 mg PO BID #60 ea 11/06/16 Insulin NPH Human [humULIN N 100 15 units SC HS ml 11/06/16 UNITS/ML (*)] Medical Decision Making - Diagnostics Imaging Results: Imaging Impressions Chest X-Ray 04/19/17 14:25 Impression: 1. Chronic bronchitis versus mild interstitial pulmonary fibrosis. 2. No definite acute pneumonia. ED Course/Re-evaluation: I met EMS on arrival. I took report from the sales representative groceries. Patient's glucose 96. Patient is not answering all my questions appropriately however he is forming complete sentences with normal articulation. I discussed the plan with the patient. Laboratory studies, EKG, chest x-ray, cultures, head CT were obtained. I rechecked the patient while here. He continued to be confused. He is given Ativan 1 the IV for his mental status. Patient's CBC is unremarkable. Patient had noted baseline creatinine of 1.3. Creatinine today is 1.4. Patient's lactic acid is normal. Troponin is negative. UA is positive. The patient was given Rocephin 1 g IV for urinary tract infection. I discussed the plan with the patient. I answered all his questions. EKG: Appears to show atrial fibrillation at 74. Normal axis and normal interval. I obtained a previous EKG. There is no atrial fibrillation in 11/02/2016. Also, on the patient's medical record there is no history of atrial fibrillation. Chest x-ray: Chronic bronchitis versus pulmonary fibrosis. No definite pneumonia. Please refer the dictated report. I discussed case with Dr. Alvarez. He accepted the patient. Differential Diagnosis: My differential includes but is not limited to altered mental status, urinary tract infection, pneumonia, aspiration, ischemic CVA, hemorrhagic CVA, electrolyte abnormality, sugar abnormality, bacteremia, sepsis - Data Points Laboratory Results: Laboratory Results 04/19/17 14:20 04/19/17 14:20 04/19/17 04/19/17 04/19/17 15:00 14:45 14:45 WBC RBC Hgb Hct MCV MCH MCHC RDW Plt Count MPV Neut % (Auto) Lymph % (Auto) [place] % (Auto) Eos % (Auto) Baso % (Auto) Nucleat RBC Rel Count Absolute Neuts (auto) Absolute Lymphs (auto) Absolute Monos (auto) Absolute Eos (auto) Absolute Basos (auto) Absolute Nucleated RBC Immature Gran % Immature Gran # PT 13.2 SEC SEC (12.0-15.0) INR 1.01 (0.83-1.16) APTT 24.8 SEC SEC (23.0-38.0) VBG Lactic Acid 1.9 mmol/L mmol/L (0.7-2.1) Sodium Potassium Chloride Carbon Dioxide Anion Gap BUN Creatinine Estimated GFR Glucose Calcium Troponin I Urine Color YELLOW Urine Appearance HAZY Urine pH 6.0 (5.0-7.5) Ur Specific [place] 1.015 (1.002-1.030) Urine Protein 1+ H (NEGATIVE) Urine Ketones NEGATIVE (NEGATIVE) Urine Blood 2+ H (NEGATIVE) Urine Nitrate POSITIVE H (NEGATIVE) Urine Bilirubin NEGATIVE (NEGATIVE) Urine Urobilinogen 2.0 EU H EU (0.2-1.0) Ur Leukocyte Esterase 3+ H (NEGATIVE) Urine RBC 50-182 /hpf H /hpf (0-3) Urine WBC 50-182 /hpf H /hpf (0-3) Ur Epithelial Cells NONE SEEN /lpf /lpf (NONE-1+) Urine Bacteria 2+ /hpf H /hpf (NONE SEEN) Urine Mucus TRACE /lpf /lpf (NONE-1+) Urine Glucose NEGATIVE (NEGATIVE) 04/19/17 04/19/17 14:20 14:20 WBC 6.31 10^3/uL 10^3/uL (3.80-9.50) RBC 5.18 10^6/uL 10^6/uL (4.40-6.38) Hgb 16.8 g/dL g/dL (13.7-17.5) Hct 48.6 % % (40.0-51.0) MCV 93.8 fL fL (81.5-99.8) MCH 32.4 pg pg (27.9-34.1) MCHC 34.6 g/dL g/dL (32.4-36.7) RDW 13.1 % % (11.5-15.2) Plt Count 221 10^3/uL 10^3/uL (150-400) MPV 9.9 fL fL (8.7-11.7) Neut % (Auto) 85.1 % H % (39.3-74.2) Lymph % (Auto) 10.8 % L % (15.0-45.0) [place] % (Auto) 0.6 % L % (4.5-13.0) Eos % (Auto) 1.1 % % (0.6-7.6) Baso % (Auto) 0.5 % % (0.3-1.7) Nucleat RBC Rel Count 0.0 % % (0.0-0.2) Absolute Neuts (auto) 5.37 10^3/uL 10^3/uL (1.70-6.50) Absolute Lymphs (auto) 0.68 10^3/uL L 10^3/uL (1.00-3.00) Absolute Monos (auto) 0.04 10^3/uL L 10^3/uL (0.30-0.80) Absolute Eos (auto) 0.07 10^3/uL 10^3/uL (0.03-0.40) Absolute Basos (auto) 0.03 10^3/uL 10^3/uL (0.02-0.10) Absolute Nucleated RBC 0.00 10^3/uL 10^3/uL (0-0.01) Immature Gran % 1.9 % H % (0.0-1.1) Immature Gran # 0.12 10^3/uL H 10^3/uL (0.00-0.10) PT INR APTT VBG Lactic Acid Sodium 141 mEq/L mEq/L (134-144) Potassium 4.4 mEq/L mEq/L (3.5-5.2) Chloride 100 mEq/L mEq/L (97-110) Carbon Dioxide 27 mEq/l mEq/l (22-31) Anion Gap 14 mEq/L mEq/L (8-16) BUN 25 mg/dL H mg/dL (7-23) Creatinine 1.4 mg/dL H mg/dL (0.7-1.3) Estimated GFR 48 Glucose 75 mg/dL mg/dL (70-100) Calcium 9.2 mg/dL mg/dL (8.5-10.4) Troponin I < 0.012 ng/mL ng/mL (0.000-0.034) Urine Color Urine Appearance Urine pH Ur Specific [place] Urine Protein Urine Ketones Urine Blood Urine Nitrate Urine Bilirubin Urine Urobilinogen Ur Leukocyte Esterase Urine RBC Urine WBC Ur Epithelial Cells Urine Bacteria Urine Mucus Urine Glucose Medications Given: Discontinued Medications Sodium Chloride (Ns) 500 mls @ 500 mls/hr IV EDNOW ONE PRN Reason: Protocol Stop: 04/19/17 15:24 Last Admin: 04/19/17 15:12 Dose: 500 mls Ceftriaxone Sodium/Dextrose (Rocephin 1 Gm (Premix)) 50 mls @ 100 mls/hr IV EDNOW ONE PRN Reason: Protocol Stop: 04/19/17 16:11 Last Admin: 04/19/17 15:53 Dose: 50 mls Lorazepam (Ativan Injection) 1 mg IVP EDNOW ONE Stop: 04/19/17 15:11 Last Admin: 04/19/17 15:11 Dose: 1 mg Departure - Departure Disposition: [facility] Clinical Impression: Altered mental status Qualifiers: Altered mental status type: unspecified Qualified Code(s): R41.82 - Altered mental status, unspecified Urinary tract infection Qualifiers: Urinary tract infection type: acute cystitis Hematuria presence: with hematuria Qualified Code(s): N30.01 - Acute cystitis with hematuria Condition: Good Referrals: Patient,NotPresent [Primary Care Provider] - As per Instructions
[2017-04-19] MEDS ORDERED: NS 500 ML IV ONE (14:25)
[2017-04-19 14:32] LABS: PLATELET COUNT 221 10^3/uL (150-400)
[2017-04-19] MEDS ORDERED: LORazepam 2 MG/ML INJ ONE (15:08)
[2017-04-19] MEDS ORDERED: LORazepam 2 MG/ML INJ IVP ONE (15:10)
[2017-04-19 15:20] LABS: INR 1.01 (0.83-1.16); PROTIME(PATIENT) 13.2 SEC (12.0-15.0)
--- NOTE | 2017-04-19 15:48 | CPEKG ---
Heart Rate: 74 RR Interval: 811 QRSD Interval: 88 QT Interval: 424 QTC Interval: 471 QRS [place]: 5 EKG Severity - ABNORMAL ECG - EKG Impression: ATRIAL FIBRILLATION EKG Impression: LOW VOLTAGE IN FRONTAL LEADS EKG Impression: BORDERLINE ST DEPRESSION, INFERIOR LEADS EKG Impression: BORDERLINE ST ELEVATION, LATERAL LEADS Electronically Signed By: Sulma Curran 19-Apr-2017 21:12:31
--- NOTE | 2017-04-19 15:48 | CPEKG ---
Heart Rate: 74 RR Interval: 811 QRSD Interval: 88 QT Interval: 424 QTC Interval: 471 QRS [place]: 5 EKG Severity - ABNORMAL ECG - EKG Impression: ATRIAL FIBRILLATION EKG Impression: LOW VOLTAGE IN FRONTAL LEADS EKG Impression: BORDERLINE ST DEPRESSION, INFERIOR LEADS EKG Impression: BORDERLINE ST ELEVATION, LATERAL LEADS Electronically Signed By: Sulma Curran 19-Apr-2017 21:12:31
--- NOTE | 2017-04-19 16:42 | CPEKG ---
Heart Rate: 74 RR Interval: 811 QRSD Interval: 90 QT Interval: 368 QTC Interval: 409 QRS [place]: 27 T Wave [place]: 71 EKG Severity - ABNORMAL ECG - EKG Impression: ATRIAL FIBRILLATION EKG Impression: LOW VOLTAGE IN FRONTAL LEADS Electronically Signed By: Sulma Curran 19-Apr-2017 21:12:31
--- NOTE | 2017-04-19 16:42 | CPEKG ---
Heart Rate: 74 RR Interval: 811 QRSD Interval: 90 QT Interval: 368 QTC Interval: 409 QRS [place]: 27 T Wave [place]: 71 EKG Severity - ABNORMAL ECG - EKG Impression: ATRIAL FIBRILLATION EKG Impression: LOW VOLTAGE IN FRONTAL LEADS Electronically Signed By: Sulma Cruran 19-Apr-2017 21:12:31
[2017-04-19] MEDS ORDERED: ONDANSETRON 4 MG/2 ML VIAL IVP PRN (16:50)
[2017-04-19] MEDS ORDERED: D50W 25 GM/50 ML SYR IVP PRN (16:56)
--- NOTE | 2017-04-19 17:28 | GHP ---
[f rep st] HISTORY AND PHYSICAL DATE OF ADMISSION: 04/19/2017 CHIEF COMPLAINT: Confused. HISTORY OF PRESENT ILLNESS: This is an 86-year-old man who was brought in from [facility] with con fusion. He was last seen normal at lunch and then staff found yelling in his room at 1:40. He was t hen brought in by ambulance. He is quite confused, writhing around, complaining that the blood press ure cuff hurts, and not really answering questions very coherently. Thus, most of my history is from chart review and discussions with Dr. Curran. PAST MEDICAL/SURGICAL HISTORY: 1. Diabetes. 2. Pseudogout. 3. Hypothyroid. 4. Obstructive sleep apnea on CPAP. 5. Neuropathy. MEDICATIONS: Please see medication reconciliation. ALLERGIES: Penicillin, AZAR inhibitors, NSAIDS, and morphine. SOCIAL HISTORY: He does not smoke. His has advanced dementia. 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 FAMILY HISTORY: Unobtainable, given his current mental status. REVIEW OF SYSTEMS: Unobtainable, given his current mental status. PHYSICAL EXAM: VITAL SIGNS: Blood pressure 108/64, heart rate 71, respiration rate 24, saturating i nitially at 91% on room air, temperature is 36.7. GENERAL: The patient is uncomfortable appearing, moving around in bed, somewhat confused. HEENT: Normocephalic, atraumatic. CARDIOVASCULAR: Regula r rate and rhythm. No murmurs, rubs, or gallops. PULMONARY: Lungs clear to auscultation bilaterall y. ABDOMEN: Soft, nontender, nondistended. SKIN: No rash. : No Santos. NEUROLOGIC: Alert and oriented times about 1 or 2. He does not have a focal neurologic exam, though he will not open his eyes for me. He is clearly moving all extremities. Strength in the upper extremities is 5/5. He wi ll not lift his lower extremities off the bed, though he tells me he will if we remove the blood pres sure cuff. He is clearly moving everything. PSYCHIATRIC: Agitated. LABS: White count is 6.3. INR is 1.year-old. Lactate is 1.9. Creatinine is 1.4. Troponin negativ e. Urinalysis shows 50-182 whites, 2+ bacteria, positive nitrites. DATA: 1. I reviewed his chart. 2. I reviewed his electrocardiograms and these show likely first-degree A-V block. 3. I personally viewed and interpreted his chest x-ray. This shows chronic bronchitis with mild int erstitial pulmonary fibrosis. IMPRESSION AND PLAN: An 86-year-old man who presents very confused with a urinary tract infection. 1. Acute encephalopathy: Quite off his baseline. I think that this is due to urinary tract infecti on. He has not tolerated a head CT. He does not have a focal exam. Thus, I do not think it is briseida gent to get a head CT at this point. I think the risk of giving him further sedation to obtain this test does not outweigh the benefit that we would received from this. Would consider getting this marichuy ecially if he does not improve. 2. Urinary tract infection: We will treat with Levaquin, as he has a penicillin allergy. He got 1 dose of Rocephin in the ED. I am aware that Levaquin has some neurologic side effects. However, we cannot really obtain a history from him right now and I think it is the safest option. 3. History of pseudogout: I do not see that anything is inflamed right now. 4. Diabetes: We will need to continue his medicines when these are reconciled. For now, we will ch reese blood glucoses and put him on a sliding scale. 5. Hypoxia: Suspect that this is related to his sleep apnea. He also has some mild pulmonary fibro sis seen on x-ray. We will follow. He is on a small amount of oxygen now. 6. Code status: He is full code. I reviewed his MOST form. 7. Venous thromboembolism risk is moderate to high. We will give him Lovenox. /[id number]/MODL
[2017-04-19] MEDS ORDERED: D10W 250 ML PRN HYPOGLYCEMIA IV (17:30)
[2017-04-19] MEDS: NS 1,000 ML IV SCH (17:42)
--- NOTE | 2017-04-19 17:59 | PDMN ---
Medical Necessity Medical necessity: C/M review: Pt. meets INPT criteria under [facility] Urologic disease GRG, Acute encephalopathy, urinary tract infection requiring ongoing IV fuids, IV Levaaquin QD, comorbid diabetes, hypothyroidism, obstructive sleep apnea, neuropathy, hx psqudogout; MD anticipates > 2 MN LOS for ongoing med nec for eval and TX of above per H/P.
--- NOTE | 2017-04-19 17:59 | PDMN ---
Medical Necessity Medical necessity: C/M review: Pt. meets INPT criteria under [facility] [place] Urologic disease GRG, Acute encephalopathy, urinary tract infection requiring ongoing IV fuids, IV Levaaquin QD, comorbid diabetes, hypothyroidism, obstructive sleep apnea, neuropathy, hx psqudogout; MD anticipates > 2 MN LOS for ongoing med nec for eval and TX of above per H/P.
--- NOTE | 2017-04-19 17:59 | PDMN ---
Medical Necessity Medical necessity: C/M review: Pt. meets INPT criteria under [facility] [place] Urologic disease GRG, Acute encephalopathy, urinary tract infection requiring ongoing IV fuids, IV Levaaquin QD, comorbid diabetes, hypothyroidism, obstructive sleep apnea, neuropathy, hx psqudogout; MD anticipates > 2 MN LOS for ongoing med nec for eval and TX of above per H/P.
[2017-04-19] MEDS: INSULIN LISPRO 100 UNIT/ML SC SCH (18:19)
[2017-04-19] MEDS: glipiZIDE 5 MG TAB PO SCH (22:17)
[2017-04-19] MEDS: SPIRONOLACTONE 25 MG TAB PO SCH (22:17)
[2017-04-19] MEDS: GABAPENTIN 300 MG CAP PO SCH (22:17)
[2017-04-20] MEDS: NS 1,000 ML IV SCH (03:38)
[2017-04-20 04:56] LABS: PLATELET COUNT 197 10^3/uL (150-400)
[2017-04-20] MEDS: LEVOTHYROXINE 200 MCG TAB PO SCH (06:16)
[2017-04-20] MEDS: ACETAMINOPHEN 325 MG TAB PO PRN ×2 (07:35→20:23)
[2017-04-20] MEDS: INSULIN LISPRO 100 UNIT/ML SC SCH ×3 (08:57→17:02)
[2017-04-20] MEDS: glipiZIDE 5 MG TAB PO SCH ×2 (08:58→20:23)
[2017-04-20] MEDS: PANTOPRAZOLE SODIUM 40 MG TAB PO SCH (08:58)
[2017-04-20] MEDS: SPIRONOLACTONE 25 MG TAB PO SCH ×2 (08:58→20:24)
[2017-04-20] MEDS: ENOXAPARIN 40 MG/0.4 ML SYR SC SCH (08:58)
[2017-04-20] MEDS: ASPIRIN EC 81 MG TAB PO SCH (08:58)
[2017-04-20] MEDS: COLCHICINE 0.6 MG CAP/TAB PO SCH (08:58)
[2017-04-20] MEDS: Saxagliptin Hcl [Onglyza] 2.5 MG PO SCH (09:05)
[2017-04-20] MEDS: INSULIN NPH HUMAN 100 UNITS/ML SYRINGE SC SCH (09:16)
--- NOTE | 2017-04-20 10:15 | HOSPPROG ---
Hospitalist Progress Note Assessment/Plan: 86 yo M admitted w encephalopathy, UTI, now bacteremic UTI: complicated w bacteremia on levoflox bacteremia: repeat blood cx now await sensitivities encephalopathy: reasonably attributed to UTI I have never met him before, but he is alert but confused today I suspect he is improving AF: new, as far as I can tell. prior ekg's w no AF (interp by me) repeat ekg now no events on tele (interp by me) ARLETTE: improved proph: lmwh dm: continue NPH, gliptin dispo: inpt Subjective: alert, confused. denies prior history of AF Objective: Vital Signs Temp Pulse Resp BP Pulse Ox 36.7 C 67 18 116/65 86 L 04/20/17 07:55 04/20/17 07:55 04/20/17 07:55 04/20/17 07:55 04/20/17 07:55 Laboratory Results 04/20/17 04:31 04/20/17 04:31 04/19/17 04/20/17 04/21/17 05:59 05:59 05:59 Intake Total 500 Output Total 150 Balance 350 PT 13.2 SEC (12.0-15.0) 04/19/17 15:00 INR 1.01 (0.83-1.16) 04/19/17 15:00 - Physical Exam Constitutional: no apparent distress, appears nourished Eyes: PERRL, anicteric sclera Ears, Nose, Mouth, Throat: moist mucous membranes, hearing normal Cardiovascular: regular rate and rhythym, no murmur, rub, or gallop, edema Respiratory: no respiratory distress, no rales or rhonchi Gastrointestinal: normoactive bowel sounds, soft, non-tender abdomen Genitourinary: no bladder fullness, No ugarte in urethra Skin: warm, normal color Musculoskeletal: full muscle strength Neurologic: No AAOx3 ICD10 Worksheet Patient Problems: Problems Problem Status Onset Altered mental status Acute Urinary tract infection Acute Arthritis Acute
--- NOTE | 2017-04-20 16:08 | ASMTCMCOM ---
CM Note CM Note Notes: 04/20/2017 Case Management Note Reviewed chart. Unable to meet w/pt d/t ongoing confusion. Pt d/c needs unclear at this time, awaiting PT and OT recommendations. Case Management d/c poc: to be determined. Case Management to follow. Date Signed: 04/20/2017 04:07 PM Electronically Signed By:Kathy Arreola RN
[2017-04-20] MEDS: GABAPENTIN 300 MG CAP PO SCH (20:24)
[2017-04-21] MEDS: LEVOTHYROXINE 200 MCG TAB PO SCH (05:37)
[2017-04-21] MEDS ORDERED: LORazepam 0.5 MG TAB PO PRN (06:24)
[2017-04-21] MEDS: SPIRONOLACTONE 25 MG TAB PO SCH ×2 (08:20→21:36)
[2017-04-21] MEDS: glipiZIDE 5 MG TAB PO SCH ×2 (08:21→21:36)
[2017-04-21] MEDS: PANTOPRAZOLE SODIUM 40 MG TAB PO SCH (08:21)
[2017-04-21] MEDS: INSULIN NPH HUMAN 100 UNITS/ML SYRINGE SC SCH (08:21)
[2017-04-21] MEDS: ASPIRIN EC 81 MG TAB PO SCH (08:21)
[2017-04-21] MEDS: COLCHICINE 0.6 MG CAP/TAB PO SCH (08:21)
[2017-04-21] MEDS: ENOXAPARIN 40 MG/0.4 ML SYR SC SCH (08:22)
[2017-04-21] MEDS: INSULIN LISPRO 100 UNIT/ML SC SCH ×3 (08:22→17:12)
[2017-04-21] MEDS: Saxagliptin Hcl [Onglyza] 2.5 MG PO SCH (08:32)
--- NOTE | 2017-04-21 10:06 | HOSPPROG ---
Hospitalist Progress Note Assessment/Plan: 86 yo M admitted w encephalopathy, UTI, now bacteremic UTI: complicated w bacteremia on levoflox bacteremia: repeat blood cx neg thus far farias sens e coli continue abx hypoxemia: ad IS stop IVF encephalopathy: reasonably attributed to UTI I have never met him before, but he is alert but confused today I suspect he is improving AF: new, as far as I can tell. prior ekg's w no AF (interp by me) repeat ekg today no events on tele (interp by me) at this point, I have not discussed AF w patient given encephalopathy I am loathe to AC patient for self limited episode of AF in setting of bacteremia may be reasonable to do outpt monitor ARLETTE: improved proph: lmwh dm: continue NPH, gliptin dispo: inpt Subjective: more alert. tangential. increased 02 requirement this AM Objective: Vital Signs Temp Pulse Resp BP Pulse Ox 36.4 C 60 16 141/72 H 97 04/21/17 07:57 04/21/17 07:57 04/21/17 07:57 04/21/17 07:57 04/21/17 07:57 Laboratory Results 04/20/17 04:31 04/20/17 04:31 04/20/17 04/21/17 04/22/17 05:59 05:59 05:59 Intake Total 500 300 Output Total 150 1350 Balance 350 300 -1350 PT 13.2 SEC (12.0-15.0) 04/19/17 15:00 INR 1.01 (0.83-1.16) 04/19/17 15:00 - Physical Exam Constitutional: no apparent distress, appears nourished, not in pain Eyes: PERRL, anicteric sclera Ears, Nose, Mouth, Throat: moist mucous membranes, hearing normal Cardiovascular: regular rate and rhythym, no murmur, rub, or gallop, No tachycardia Respiratory: no respiratory distress, no rales or rhonchi, other (CTA anterolat) Gastrointestinal: normoactive bowel sounds, soft, non-tender abdomen, no palpable masses Genitourinary: no bladder fullness, No ugarte in urethra Skin: warm, normal color Musculoskeletal: full muscle strength, no muscle tenderness Neurologic: sensation intact bilaterally, No AAOx3 ICD10 Worksheet Patient Problems: Problems Problem Status Onset Altered mental status Acute Urinary tract infection Acute Arthritis Acute
[2017-04-21] MEDS ORDERED: FLU VACC QS 2017-18 (3YR+)/PF 0.5 ML SYR (FLUARIX QUAD) IM ONE (10:16)
--- NOTE | 2017-04-21 11:26 | CPEKG ---
Heart Rate: 58 RR Interval: 1034 P-R Interval: 330 QRSD Interval: 88 QT Interval: 432 QTC Interval: 425 P [place]: -69 QRS [place]: -6 T Wave [place]: 18 EKG Severity - ABNORMAL ECG - EKG Impression: ECTOPIC ATRIAL RHYTHM EKG Impression: FIRST DEGREE AV BLOCK EKG Impression: Resolution of atrial fibrillation since April 19, 2017 Electronically Signed By: Blane Portillo 21-Apr-2017 12:52:15
--- NOTE | 2017-04-21 11:26 | CPEKG ---
Heart Rate: 58 RR Interval: 1034 P-R Interval: 330 QRSD Interval: 88 QT Interval: 432 QTC Interval: 425 P [place]: -69 QRS [place]: -6 T Wave [place]: 18 EKG Severity - ABNORMAL ECG - EKG Impression: ECTOPIC ATRIAL RHYTHM EKG Impression: FIRST DEGREE AV BLOCK EKG Impression: Resolution of atrial fibrillation since April 19, 2017 Electronically Signed By: Blane Portillo 21-Apr-2017 12:52:15
[2017-04-21 12:18] LABS: PLATELET COUNT 208 10^3/uL (150-400)
--- NOTE | 2017-04-21 16:54 | ASMTCMCOM ---
CM Note CM Note Notes: CM spoke w/ Sharmila RN. Pt will be switched to oral antibiotics tomorrow. PT/OT are recommending SNF. CM met w/ pt for dispo planning. Initially pt was reluctant to go to rehab. Pt was eventually agreeable to going to [facility] for SNF. CM faxed over referral. CM to follow. Date Signed: 04/21/2017 04:54 PM Electronically Signed By:ZEHRA Craft
--- NOTE | 2017-04-21 16:54 | ASMTCMCOM ---
CM Note CM Note Notes: CM spoke w/ Sharmila RN. Pt will be switched to oral antibiotics tomorrow. PT/OT are recommending SNF. CM met w/ pt for dispo planning. Initially pt was reluctant to go to rehab. Pt was eventually agreeable to going to [facility] for SNF. CM faxed over referral. CM to follow. Date Signed: 04/21/2017 04:54 PM Electronically Signed By:ZEHRA Craft
[2017-04-21] MEDS: GABAPENTIN 300 MG CAP PO SCH (21:36)
[2017-04-22] MEDS: INSULIN LISPRO 100 UNIT/ML SC SCH ×3 (09:15→17:33)
[2017-04-22] MEDS: ASPIRIN EC 81 MG TAB PO SCH (09:16)
[2017-04-22] MEDS: ENOXAPARIN 40 MG/0.4 ML SYR SC SCH (09:16)
[2017-04-22] MEDS: glipiZIDE 5 MG TAB PO SCH ×2 (09:16→21:45)
[2017-04-22] MEDS: COLCHICINE 0.6 MG CAP/TAB PO SCH (09:16)
[2017-04-22] MEDS: PANTOPRAZOLE SODIUM 40 MG TAB PO SCH (09:16)
[2017-04-22] MEDS: SPIRONOLACTONE 25 MG TAB PO SCH ×2 (09:16→21:44)
[2017-04-22] MEDS: INSULIN NPH HUMAN 100 UNITS/ML SYRINGE SC SCH (09:17)
[2017-04-22] MEDS: LEVOTHYROXINE 200 MCG TAB PO SCH (09:23)
[2017-04-22] MEDS: Saxagliptin Hcl [Onglyza] 2.5 MG PO SCH (09:24)
[2017-04-22 09:26] LABS: PLATELET COUNT 206 10^3/uL (150-400)
--- NOTE | 2017-04-22 11:19 | HOSPPROG ---
Hospitalist Progress Note Assessment/Plan: 86 yo M admitted w encephalopathy, UTI, now bacteremic UTI: complicated w bacteremia on levoflox day 10/11 bacteremia: repeat blood cx neg thus far farias sens e coli continue abx hypoxemia: ad IS stop IVF encephalopathy: reasonably attributed to UTI I have never met him before, but he is alert but confused today I suspect he is improving AF: new, as far as I can tell. prior ekg's w no AF (interp by me) repeat ekg today no events on tele (interp by me) yesterday's ekg in sinus w fist degree AV block (interp by me) at this point, I feel this is self limited AF in setting of critical illness. ether way is a poor anticoag candidate given unsteadiness on his feet and refusal of PT ARLETTE: improved proph: lmwh dm: continue NPH, gliptin dispo: inpt Subjective: paranoid, tangential. refsuing PT Objective: Vital Signs Temp Pulse Resp BP Pulse Ox 36.4 C 53 L 20 133/69 H 93 04/22/17 07:44 04/22/17 07:44 04/22/17 07:44 04/22/17 07:44 04/22/17 07:44 Laboratory Results 04/22/17 09:17 04/22/17 09:17 04/21/17 04/22/17 04/23/17 05:59 05:59 05:59 Intake Total 300 575 Output Total 3750 650 Balance 300 -3175 -650 PT 13.2 SEC (12.0-15.0) 04/19/17 15:00 INR 1.01 (0.83-1.16) 04/19/17 15:00 - Physical Exam Constitutional: no apparent distress, appears nourished Eyes: PERRL, anicteric sclera Ears, Nose, Mouth, Throat: moist mucous membranes, hearing normal Cardiovascular: regular rate and rhythym, no murmur, rub, or gallop, No systolic murmur Respiratory: no respiratory distress, no rales or rhonchi Gastrointestinal: normoactive bowel sounds, soft, non-tender abdomen Genitourinary: no bladder fullness, No ugarte in urethra Skin: warm, normal color Musculoskeletal: full muscle strength, no muscle tenderness Neurologic: AAOx3 ICD10 Worksheet Patient Problems: Problems Problem Status Onset Altered mental status Acute Urinary tract infection Acute Arthritis Acute
--- NOTE | 2017-04-22 16:00 | ASMTCMCOM ---
CM Note CM Note Notes: CM called [facility] to inquire about referral that was sent yesterday and they report that they do not a rehab facility. CM met w/ pt for dispo planning. Pt is not interested in going to a SNF at this time. Pt hopes to return to [facility] to be reunited w/ his and get PT there. Pt reports PT has already been set up and he has missed a few sessions being here at the hospital. CM spoke w/ Derian at [facility] and they would like to have pt go to a SNF. Derian does not think pt will be a good candidate for HC because he will not be home bound. Derian reports that they can accept him back even if he does not go to a SNF. CM to follow. Date Signed: 04/22/2017 04:00 PM Electronically Signed By:ZEHRA Craft
--- NOTE | 2017-04-22 16:00 | ASMTCMCOM ---
CM Note CM Note Notes: CM called [facility] to inquire about referral that was sent yesterday and they report that they do not a rehab facility. CM met w/ pt for dispo planning. Pt is not interested in going to a SNF at this time. Pt hopes to return to [facility] to be reunited w/ his and get PT there. Pt reports PT has already been set up and he has missed a few sessions being here at the hospital. CM spoke w/ Derian at [facility] and they would like to have pt go to a SNF. Derian does not think pt will be a good candidate for HC because he will not be home bound. Derian reports that they can accept him back even if he does not go to a SNF. CM to follow. Date Signed: 04/22/2017 04:00 PM Electronically Signed By:ZEHRA Craft
--- NOTE | 2017-04-22 16:00 | ASMTCMCOM ---
CM Note CM Note Notes: CM called [facility] to inquire about referral that was sent yesterday and they report that they do not a rehab facility. CM met w/ pt for dispo planning. Pt is not interested in going to a SNF at this time. Pt hopes to return to [facility] to be reunited w/ his and get PT there. Pt reports PT has already been set up and he has missed a few sessions being here at the hospital. CM spoke w/ Derian at [facility] and they would like to have pt go to a SNF. Derian does not think pt will be a good candidate for HC because he will not be home bound. Derian reports that they can accept him back even if he does not go to a SNF. CM to follow. Date Signed: 04/22/2017 04:00 PM Electronically Signed By:ZEHRA Craft
[2017-04-22] MEDS: GABAPENTIN 300 MG CAP PO SCH (21:45)
[2017-04-23] MEDS: PANTOPRAZOLE SODIUM 40 MG TAB PO SCH (09:23)
[2017-04-23] MEDS: SPIRONOLACTONE 25 MG TAB PO SCH ×2 (09:24→20:27)
[2017-04-23] MEDS: ASPIRIN EC 81 MG TAB PO SCH (09:24)
[2017-04-23] MEDS: COLCHICINE 0.6 MG CAP/TAB PO SCH (09:25)
[2017-04-23] MEDS: LEVOTHYROXINE 200 MCG TAB PO SCH (09:25)
[2017-04-23] MEDS: glipiZIDE 5 MG TAB PO SCH ×2 (09:25→20:28)
[2017-04-23] MEDS: ENOXAPARIN 40 MG/0.4 ML SYR SC SCH (09:26)
[2017-04-23] MEDS: INSULIN LISPRO 100 UNIT/ML SC SCH ×3 (09:26→18:30)
[2017-04-23] MEDS: Saxagliptin Hcl [Onglyza] 2.5 MG PO SCH (09:27)
[2017-04-23] MEDS: INSULIN NPH HUMAN 100 UNITS/ML SYRINGE SC SCH (09:51)
--- NOTE | 2017-04-23 14:05 | HOSPPROG ---
Hospitalist Progress Note Assessment/Plan: 86 yo M admitted w encephalopathy, UTI, now bacteremic UTI: complicated w bacteremia on levoflox day 11/10 bacteremia: repeat blood cx neg thus far farias sens e coli continue abx hypoxemia: ad IS stop IVF encephalopathy: reasonably attributed to UTI I have never met him before, but he is alert but confused today I suspect he is improving 04/23- much more alert today and likely at baseline AF: new, as far as I can tell. prior ekg's w no AF (interp by me) repeat ekg today no events on tele (interp by me) yesterday's ekg in sinus w fist degree AV block (interp by me) at this point, I feel this is self limited AF in setting of critical illness. ether way is a poor anticoag candidate given unsteadiness on his feet and refusal of PT ARLETTE: improved proph: lmwh dm: continue NPH, gliptin dispo: inpt; suspect he will be able to be dc'd home Subjective: afebrile/. repeat cx neg thus far. constipated. improved w PT; they now rec dc to assisted living, which is where he lives Objective: Vital Signs Temp Pulse Resp BP Pulse Ox 36.3 C 50 L 18 118/57 L 95 04/23/17 08:00 04/23/17 08:00 04/23/17 08:00 04/23/17 08:00 04/23/17 08:00 Laboratory Results 04/22/17 09:17 04/22/17 09:17 04/22/17 04/23/17 04/24/17 05:59 05:59 05:59 Intake Total 575 Output Total 3750 650 Balance -3175 -650 PT 13.2 SEC (12.0-15.0) 04/19/17 15:00 INR 1.01 (0.83-1.16) 04/19/17 15:00 - Physical Exam Constitutional: no apparent distress, appears nourished Eyes: PERRL, anicteric sclera Ears, Nose, Mouth, Throat: moist mucous membranes, hearing normal Cardiovascular: regular rate and rhythym, no murmur, rub, or gallop Respiratory: no respiratory distress, no rales or rhonchi Gastrointestinal: normoactive bowel sounds, soft, non-tender abdomen Genitourinary: no bladder fullness, No ugarte in urethra Skin: warm, normal color Musculoskeletal: full muscle strength Neurologic: AAOx3 ICD10 Worksheet Patient Problems: Problems Problem Status Onset Altered mental status Acute Urinary tract infection Acute Arthritis Acute
--- NOTE | 2017-04-23 14:16 | ASMTCMCOM ---
CM Note CM Note Notes: CM spoke w/ Tala, PT and her recommendation is that pt can d/c independent back to assisted living facility. CM available for changes. Date Signed: 04/23/2017 02:15 PM Electronically Signed By:ZEHRA Craft
[2017-04-23] MEDS: POLYETHYLENE GLYCOL 3350 17 GM PKT PO SCH (15:17)
[2017-04-23] MEDS: GABAPENTIN 300 MG CAP PO SCH (20:28)
[2017-04-23] MEDS ORDERED: traZODone 50 MG TAB PO SCH (21:00)
[2017-04-24] MEDS: LEVOTHYROXINE 200 MCG TAB PO SCH (06:17)
[2017-04-24 07:48] VITALS: BP 151/70; PULSE 57; RESP 20; TEMP 97.3; O2SAT 89
[2017-04-24] MEDS: INSULIN NPH HUMAN 100 UNITS/ML SYRINGE SC SCH (08:32)
[2017-04-24] MEDS: COLCHICINE 0.6 MG CAP/TAB PO SCH (08:33)
[2017-04-24] MEDS: PANTOPRAZOLE SODIUM 40 MG TAB PO SCH (08:33)
[2017-04-24] MEDS: ENOXAPARIN 40 MG/0.4 ML SYR SC SCH ×2 (08:34→08:39)
[2017-04-24] MEDS: ASPIRIN EC 81 MG TAB PO SCH (08:34)
[2017-04-24] MEDS: SPIRONOLACTONE 25 MG TAB PO SCH (08:34)
[2017-04-24] MEDS: glipiZIDE 5 MG TAB PO SCH (08:34)
[2017-04-24] MEDS: POLYETHYLENE GLYCOL 3350 17 GM PKT PO SCH ×2 (08:34→08:38)
[2017-04-24] MEDS: INSULIN LISPRO 100 UNIT/ML SC SCH ×2 (08:36→11:46)
[2017-04-24] MEDS: Saxagliptin Hcl [Onglyza] 2.5 MG PO SCH (08:37)
--- NOTE | 2017-04-24 11:41 | HOSPPROG ---
Hospitalist Progress Note Assessment/Plan: 86 yo M admitted w encephalopathy, UTI, now bacteremic UTI: complicated w bacteremia on levoflox day 12/11 bacteremia: repeat blood cx neg thus far farias sens e coli continue abx hypoxemia: ad IS stop IVF encephalopathy: reasonably attributed to UTI, seems improved ?AF: I reviewed recent EKG's which show NSR with marked 1st degree heart block assd with dropped beats. Agree this is not likely A fib. ARLETTE: improved proph: lmwh dm: continue NPH, gliptin dispo: inpt; suspect he will be able to be dc'd home Objective: Vital Signs Temp Pulse Resp BP Pulse Ox 36.3 C 57 L 20 151/70 H 89 L 04/24/17 07:47 04/24/17 07:47 04/24/17 07:47 04/24/17 07:47 04/24/17 07:47 Laboratory Results 04/22/17 09:17 04/22/17 09:17 04/23/17 04/24/17 04/25/17 05:59 05:59 05:59 Intake Total 480 Output Total 650 Balance -650 480 PT 13.2 SEC (12.0-15.0) 04/19/17 15:00 INR 1.01 (0.83-1.16) 04/19/17 15:00 ICD10 Worksheet Patient Problems: Problems Problem Status Onset Altered mental status Acute Urinary tract infection Acute Arthritis Acute
--- NOTE | 2017-04-24 16:52 | ASDISCHSUM ---
Discharge Information Plan Status:SNF Medically Cleared to Leave: Discharge Date:04/24/2017 02:05 PM D/C Disposition:Assisted Living ADT D/C Disposition:Home, Routine, Self-Care Projected Discharge Date:04/24/2017 11:00 AM Transportation at D/C: Discharge Delay Reason: Follow-Up Date:04/24/2017 11:00 AM Discharge Slot: Final Diagnosis: Placement Information Referral Type:*Fdc/SNF Referral ID:[id number] Provider Name:[facility] Address 1:[address] Phone Number: Address 2: Fax Number: [facility]:[place] Selection Factors: State:[place] Patient Contact Information Contact Name:KAYY Relationship: Address[address] City:[place] Alternate Phone: State/Zip Code:[place] [address] Email: Financial Information Financial Class:Medicare Advantage Plans Primary Plan Desc:[employer] ADV IP Primary Plan Number:[id number] Secondary Plan Desc: Secondary Plan Number: Assessment Information [facility] CM Progress Note CM Note CM Note Notes: 04/20/2017 Case Management Note Reviewed chart. Unable to meet w/pt d/t ongoing confusion. Pt d/c needs unclear at this time, awaiting PT and OT recommendations. Case Management d/c poc: to be determined. Case Management to follow. Date Signed: 04/20/2017 04:07 PM Electronically Signed By:Kathy Arreola RN [facility] CM Progress Note CM Note CM Note Notes: CM spoke hanny/ [facility]. Pt will be switched to oral antibiotics tomorrow. PT/OT are recommending SNF. CM met w/ pt for dispo planning. Initially pt was reluctant to go to rehab. Pt was eventually agreeable to going to [facility] for SNF. CM faxed over referral. CM to follow. Date Signed: 04/21/2017 04:54 PM Electronically Signed By:ZEHRA Craft [facility] CM Progress Note CM Note CM Note Notes: CM called [facility] to inquire about referral that was sent yesterday and they report that they do not a rehab facility. CM met w/ pt for dispo planning. Pt is not interested in going to a SNF at this time. Pt hopes to return to [facility] to be reunited w/ his and get PT there. Pt reports PT has already been set up and he has missed a few sessions being here at the hospital. CM spoke w/ Derian at [facility] and they would like to have pt go to a SNF. Derian does not think pt will be a good candidate for HC because he will not be home bound. Derian reports that they can accept him back even if he does not go to a SNF. CM to follow. Date Signed: 04/22/2017 04:00 PM Electronically Signed By:ZEHRA Craft [facility] SHANIA Progress Note SHANIA Note SHANIA Note Notes: SHANIA spoke w/ KRISTEN Edgar and her recommendation is that pt can d/c independent back to assisted living facility. CM available for changes. Date Signed: 04/23/2017 02:15 PM Electronically Signed By:ZEHRA Craft Intervention Information
--- NOTE | 2017-04-24 16:52 | ASDISCHSUM ---
Discharge Information Plan Status:SNF Medically Cleared to Leave: Discharge Date:04/24/2017 02:05 PM D/C Disposition:Assisted Living ADT D/C Disposition:Home, Routine, Self-Care Projected Discharge Date:04/24/2017 11:00 AM Transportation at D/C: Discharge Delay Reason: Follow-Up Date:04/24/2017 11:00 AM Discharge Slot: Final Diagnosis: Placement Information Referral Type:*Retirement/SNF Referral ID:[id number] Provider Name:[facility] Address 1:[address] Phone Number: Address 2: Fax Number: [facility]:[place] Selection Factors: State:[place] Patient Contact Information Contact Name:KAYY Relationship: Address[address] City:[place] Alternate Phone: State/Zip Code:[place] [address] Email: Financial Information Financial Class:Medicare Advantage Plans Primary Plan Desc:[employer] ADV IP Primary Plan Number:[id number] Secondary Plan Desc: Secondary Plan Number: Assessment Information [facility] CM Progress Note CM Note CM Note Notes: 04/20/2017 Case Management Note Reviewed chart. Unable to meet w/pt d/t ongoing confusion. Pt d/c needs unclear at this time, awaiting PT and OT recommendations. Case Management d/c poc: to be determined. Case Management to follow. Date Signed: 04/20/2017 04:07 PM Electronically Signed By:Kathy Arreola RN [facility] CM Progress Note CM Note CM Note Notes: CM spoke hanny/ [facility] Doll. Pt will be switched to oral antibiotics tomorrow. PT/OT are recommending SNF. CM met w/ pt for dispo planning. Initially pt was reluctant to go to rehab. Pt was eventually agreeable to going to [facility] for SNF. CM faxed over referral. CM to follow. Date Signed: 04/21/2017 04:54 PM Electronically Signed By:ZEHRA Craft [facility] CM Progress Note CM Note CM Note Notes: CM called [facility] to inquire about referral that was sent yesterday and they report that they do not a rehab facility. CM met w/ pt for dispo planning. Pt is not interested in going to a SNF at this time. Pt hopes to return to [facility] to be reunited w/ his and get PT there. Pt reports PT has already been set up and he has missed a few sessions being here at the hospital. CM spoke w/ Derian at [facility] and they would like to have pt go to a SNF. Derian does not think pt will be a good candidate for HC because he will not be home bound. Derian reports that they can accept him back even if he does not go to a SNF. CM to follow. Date Signed: 04/22/2017 04:00 PM Electronically Signed By:ZEHRA Craft [facility] SHANIA Progress Note SHANIA Note SHANIA Note Notes: SHANIA spoke w/ KRISTEN Edgar and her recommendation is that pt can d/c independent back to assisted living facility. CM available for changes. Date Signed: 04/23/2017 02:15 PM Electronically Signed By:ZEHRA Craft Intervention Information
--- NOTE | 2017-04-24 16:52 | ASDISCHSUM ---
Discharge Information Plan Status:SNF Medically Cleared to Leave: Discharge Date:04/24/2017 02:05 PM D/C Disposition:Assisted Living ADT D/C Disposition:Home, Routine, Self-Care Projected Discharge Date:04/24/2017 11:00 AM Transportation at D/C: Discharge Delay Reason: Follow-Up Date:04/24/2017 11:00 AM Discharge Slot: Final Diagnosis: Placement Information Referral Type:*Chcf/SNF Referral ID:[id number] Provider Name:[facility] Address 1:[address] Phone Number: Address 2: Fax Number: [facility]:[place] Selection Factors: State:[place] Patient Contact Information Contact Name:KAYY Relationship: Address:[address] City:[place] Alternate Phone: State/Zip Code:[place] [address] Email: Financial Information Financial Class:Medicare Advantage Plans Primary Plan Desc:[employer] ADV IP Primary Plan Number:[id number] Secondary Plan Desc: Secondary Plan Number: Assessment Information [facility] CM Progress Note CM Note CM Note Notes: 04/20/2017 Case Management Note Reviewed chart. Unable to meet w/pt d/t ongoing confusion. Pt d/c needs unclear at this time, awaiting PT and OT recommendations. Case Management d/c poc: to be determined. Case Management to follow. Date Signed: 04/20/2017 04:07 PM Electronically Signed By:Kathy Arreola RN [facility] CM Progress Note CM Note CM Note Notes: CM spoke hanny/ EMILY Doll. Pt will be switched to oral antibiotics tomorrow. PT/OT are recommending SNF. CM met w/ pt for dispo planning. Initially pt was reluctant to go to rehab. Pt was eventually agreeable to going to [facility] for SNF. CM faxed over referral. CM to follow. Date Signed: 04/21/2017 04:54 PM Electronically Signed By:ZEHRA Craft [facility] CM Progress Note CM Note CM Note Notes: CM called [facility] to inquire about referral that was sent yesterday and they report that they do not a rehab facility. CM met w/ pt for dispo planning. Pt is not interested in going to a SNF at this time. Pt hopes to return to [facility] to be reunited w/ his and get PT there. Pt reports PT has already been set up and he has missed a few sessions being here at the hospital. CM spoke w/ Derian at [facility] and they would like to have pt go to a SNF. Derian does not think pt will be a good candidate for HC because he will not be home bound. Derian reports that they can accept him back even if he does not go to a SNF. CM to follow. Date Signed: 04/22/2017 04:00 PM Electronically Signed By:ZEHRA Craft [facility] SHANIA Progress Note SHANIA Note SHANIA Note Notes: SHANIA spoke w/ KRISTEN Edgar and her recommendation is that pt can d/c independent back to assisted living facility. CM available for changes. Date Signed: 04/23/2017 02:15 PM Electronically Signed By:ZEHRA Craft Intervention Information
--- NOTE | 2017-04-24 17:34 | GDS ---
[f rep st] DISCHARGE SUMMARY DISCHARGE DIAGNOSES: 1. E coli bacteremia secondary to urinary tract infection. 2. Urinary tract infection. 3. Acute encephalopathy secondary to infection, resolved. 4. Acute kidney injury, resolved. 5. First-degree heart block. 6. Diabetes mellitus. CONSULTANTS: None. HISTORY: For details please see the history and physical dated April 19, 2017. In brief, patient is an 86-year-old male with a history of diabetes, hypothyroidism and sleep apnea, who was brought to the emergency department from his assisted living facility with confusion. He was found to have evidence of urinary tract infection, was admitted to the hospital for further manageme nt. HOSPITAL COURSE: The patient was admitted to the Medical/Surgical unit. He was noted to be quite en cephalopathic on arrival, though his mentation returned to baseline at time of discharge. He was lizbeth ated with Levaquin for a urinary tract infection. His urine culture grew pansensitive E coli. In ad dition, he had 2/2 positive blood cultures. Repeat blood cultures are no growth to date. PLAN: Is to treat him for a total of 2 weeks with oral levofloxacin. He will continue all other out patient medications as previously prescribed. DISPOSITION: Patient is discharged home to assisted living facility in stable condition. DISCHARGE MEDICATIONS: Please see [facility] for completed outpatient medication list. NEW MEDICATIONS ON DISCHARGE: Include Levaquin 750 mg p.o. daily #8, no refills. /[id number]/MODL
== END 2017-04-24 14:05 | disposition home or self-care (01) | DRG 689 ==
LOC: EDUNIT# → F3E 17:29
PROVIDERS: ADMIT Student in an Organized Health Care Education/Training Program; ATTEND Student in an Organized Health Care Education/Training Program
DX: N39.0 Urinary tract infection, site not specified (principal); G93.41 Metabolic encephalopathy; N17.9 Acute kidney failure, unspecified; R78.81 Bacteremia; B96.20 Unspecified Escherichia coli [E. coli] as the cause of diseases classified elsewhere; I44.0 Atrioventricular block, first degree; E11.9 Type 2 diabetes mellitus without complications; E03.9 Hypothyroidism, unspecified; G47.33 Obstructive sleep apnea (adult) (pediatric); Z87.891 Personal history of nicotine dependence; Z23 Encounter for immunization
CPT/HCPCS: 96365; 97116-GP; 97162-GP; 97166-GO; 97530-GO; 97535-GO; G0008; J0696; J1650; J1815; J1956; J2060